=== PATIENT | female | born 1975 | race Caucasian/White ===

== ENCOUNTER → 2020-11-03 14:55 | Outpatient (CLI) | payer OTHER, SELFPAY ==
--- NOTE | ~2020-11-03 | MM_ITS ---
EXAMINATION: MM screening [facility] BI w tete HISTORY: Screening mammogram TECHNIQUE: Craniocaudal and mediolateral oblique 3-D tomosynthesis images were obtained and synthetic 2-D images were generated. CAD analysis was submitted and interpreted. COMPARISON: 10/17/2018, 10/12/2018, 10/02/2017 BREAST PARENCHYMAL COMPOSITION: The breasts are heterogeneously dense, which may obscure small masses . FINDINGS: There is no evidence of suspicious mass, calcification, or architectural distortion to sugg est malignancy in either breast. There has been no suspicious interval change. IMPRESSION: 1. No mammographic evidence of malignancy. 2. Recommend routine screening mammography in one year. BI-RADS Category 1: Negative Reviewed, dictated and finalized at location A.
== END ==
PROVIDERS: PCP Family Medicine Sports Medicine; Visit Provider Nurse Practitioner
DX: Z12.31 Encounter for screening mammogram for malignant neoplasm of breast (principal)
CPT/HCPCS: 77063; 77067

== ENCOUNTER 2021-07-28 21:00 | Emergency (ER) | payer OTHER, SELFPAY ==
[2021-07-28] VITALS (8 sets, daily range): BP systolic 104–132; BP diastolic 55–75; PULSE 77–84; RESP 18; TEMP 36.7–36.9; O2SAT 96–100
--- NOTE | ~2021-07-28 | CT_ITS ---
EXAMINATION: CT abdomen pelvis wo con DATE: 07/28/2021 23:00 INDICATION: R flank pain TECHNIQUE: Computed tomography (CT) of the abdomen and pelvis was performed without intravenous contr ast. Automated exposure control and iterative reconstruction technique were employed. The dose-length product was 761.57 mGy-cm. COMPARISON: 12/23/2010. FINDINGS: Lower thorax: Unremarkable Liver: Normal. Biliary/Gallbladder: Gallbladder is collapsed. No bile duct dilation. Pancreas: No mass or duct dilation. Spleen: Normal. Adrenals:No mass. Kidneys: No stone or mass. Mild right hydronephrosis and periureteral stranding. GI tract: No small or large bowel dilation. Normal appendix. Mesentery/Peritoneum: No ascites, mass, or free air. Retroperitoneum: No mass. Pelvis: IUD, in good position. Normal ovaries and uterus. The bladder is decompressed, with periphera l stranding. No obstructing stone or mass. Soft Tissues: Soft tissues and body wall unremarkable. Bones: No acute osseous finding. IMPRESSION: Mild right hydronephrosis with bladder and right ureteral inflammatory change. These findings may rep resent a recently passed stone or cystitis with ascending infection on the right. Reviewed, dictated and finalized at location K. IMPRESSION: Mild right hydronephrosis with bladder and right ureteral inflammatory change. These findings may represent a recently passed stone or cystitis with ascending infection on the right.
[2021-07-28 21:27] LABS: Basophils Absolute Auto 0.1 K/mm3 (0.0-0.1); Basophils Percent Auto 0.4 % (0.2-1.2); Eosinophils Absolute Auto 0.1 K/mm3 (0-0.3); Eosinophils Percent Auto 0.8 % (0-4.4); Hematocrit 41.5 % (37.0-47.0); Hemoglobin 13.7 g/dL (12.0-15.0); Immature Granulocyte Absolute 0.05 K/mm3 (0.00-0.031); Immature Granulocyte Percent A 0.3 % (0-0.5); Lymphocytes Absolute Auto 2.86 K/mm3 (0.9-3.2); Mean Corpuscular Hemoglobin 33.9 pg (26-34); Mean Corpuscular Volume 102.7 fl (80-100); Mean Platelet Volume 9.3 fl (7.4-10.4); Monocytes Absolute Auto 1.5 K/mm3 (0.1-0.6); Monocytes Percent Auto 8.8 % (2.6-8.5); Neutrophils Absolute Auto 12.3 K/mm3 (1.3-6.7); Neutrophils Percent Auto 72.7 % (45.5-73.1); Platelet Count Result 266 k/mm3 (150-375); Red Blood Count 4.04 M/mm3 (4.2-5.4); Red Cell Distribution Width 12.6 % (11.5-14.5); White Blood Count 16.9 K/mm3 (4.5-10.0)
[2021-07-28 21:31] LABS: Appearance Urine Cloudy (Clear); Bilirubin Urine Negative (Negative); Blood Urine 2+ (Negative); Color Urine Yellow (Yellow); Glucose Urine UA Negative (Negative); Ketones Urine Negative (Negative); Leukocyte Esterase Ur 2+ LEU/UL (Negative); Nitrate Urine Positive (Negative); Protein Urine 2+ mg/dL (Negative); Urobilinogen Urine 0.2 mg/dL (<2.0)
[2021-07-28 21:41] LABS: Alanine Aminotransferase 94 U/L (6-35); Albumin Level 4.8 g/dL (3.5-5.1); Alkaline Phosphatase 139 U/L (38-126); Anion Gap 8 mmol/L (8-16); Aspartate Amino Transferase 80 U/L (14-36); Bilirubin,Total 0.5 mg/dL (0.2-1.3); Blood Urea Nitrogen 14 mg/dL (7-17); Calcium 9.3 mg/dL (8.4-10.2); Carbon Dioxide 24 mmol/L (22-30); Chloride 104 mmol/L (98-107); Estimated CRCL calculation 85 ml/min; Estimated Glomerular Filt Rate > 60; Glucose 117 mg/dL (65-110); Potassium 3.9 mmol/L (3.4-5.0); Sodium 136 mmol/L (137-145)
--- NOTE | 2021-07-28 21:42 | ED.GENADULT ---
HPI - General Adult General Chief complaint: Urogenital-Female Stated complaint: low back pain, uti symptoms Time Seen by Provider: 07/28/21 21:36 Source: RN notes reviewed History of Present Illness HPI narrative: Patient presents emergency department from home for dysuria. Patient states she began to have dysuria 2 days ago. States that yesterday evening she began to have pain in her right lower abdomen that radiates into her right flank pain is worse with movement she states it is associated with nausea but denies any vomiting states she did have 1 bowel movement earlier today was had none since. She denies any fevers or chills, chest pain shortness of breath or any other symptoms states she not taking pain medication at home Related Data Home Medications Medication Instructions Recorded Confirmed fluoxetine 20 mg capsule 20 mg PO DAILY 07/05/21 07/22/21 multivit with min-folic acid 1 tablet PO DAILY 07/22/21 07/22/21 [Adult One Daily Multivitamin] Allergies Allergy/AdvReac Type Severity Reaction Status Date / Time Sulfa (Sulfonamide Allergy Mild Unknown Verified 07/28/21 21:15 Antibiotics) Penicillins Allergy Unknown Unknown Verified 07/28/21 21:15 Review of Systems Review of Systems: Gen.: Denies fevers or chills ENT: Denies congestion Respiratory: Denies shortness of breath or cough CV: Denies chest pain or palpitations GI: See HPI reports dysuria Musculoskeletal: Denies back pain or muscle pain Neuro: Denies numbness, tingling, weakness or focal weakness Skin: Denies rash Except as documented, all other systems reviewed and negative PMFSH Past Medical History Medical History Diverticulitis Surgical History Surgical History (Updated 07/05/21 @ 09:39 by Catrina Ely MA) H/O adenoidectomy H/O breast biopsy H/O colonoscopy H/O hernia repair History of tonsillectomy Family History Family History (Updated 07/05/21 @ 09:40 by Catrina Ely MA) Mother Colon cancer CHF (congestive heart failure) Diabetes mellitus Father COPD (chronic obstructive pulmonary disease) Social History Social History Smoking status: Never smoker Second hand tobacco smoke exposure: No Alcohol intake: current Alcohol use details: occasional Substance use: never Substance use type: does not use Additional living arrangements comments: Gender identity (if verbalized by the patient): Female Spiritual care concerns: No Exam Narrative: APPEARANCE: No acute distress, nontoxic, resting in bed HEENT: Normocephalic, atraumatic, OMM RESPIRATORY: No respiratory distress, clear to auscultation bilaterally with no rhonchi wheezing or rales CARDIOVASCULAR: RRR s murmur ABDOMINAL: Soft nondistended tender palpation right upper quadrant right lower quadrant no tenderness left lower quadrant left lower quadrant no rebound or guarding, right flank tenderness MUSCULOSKELETAl: Moves all extremities. No clubbing, cyanosis or edema. NEURO: Awake and alert. Following commands, speech normal, no focal deficits SKIN:: Warm, dry. Normal Color PSYCHIATRIC: Normal affect/mood Course Course Emergency Course: Called and discussed with pharmacy regarding the patient's allergies as the patient is also on fluoxetine. We discussed the pros versus cons and at this time we will give Rocephin as patient has had hives to penicillin but is never been on a cephalosporin Patient given cephalosporin no rash will discharge on cefdinir Discussed with patient results of workup and diagnosis. Discussed need for follow-up with primary care, proper use of medication, and reasons to return to the emergency department. Patient understands and agrees to current treatment plan Vital Signs Vital signs: Vital Signs Temperature 98.1 F 07/28/21 21:12 Pulse Rate 77 07/28/21 21:12 Respiratory Ra
[2021-07-28 21:46] LABS: Bacteria Urine Trace /hpf; RBC Urine >75 /hpf (0-2); Squamous Epithelial Cell Urine Moderate /hpf (Few); WBC Urine >75 /hpf
[2021-07-28 21:47] LABS: Add Urine Microscopic? YES
[2021-07-28] MEDS: KETOROLAC 30 MG/ML VIAL (*BKC) IV PUSH (21:54)
[2021-07-28] MEDS: ONDANSETRON INJ 4 MG/2 ML VIAL IV PUSH (21:54)
[2021-07-28] MEDS: SODIUM CHLORIDE 0.9% IV 1,000 ML 999 ML IV CONT (21:54)
--- NOTE | 2021-07-28 23:12 | PC.NURSE ---
Assumed care of pt. at this time. Report from MARQUIS Schneider
--- NOTE | 2021-07-28 23:14 | ECG_ITS ---
Measurements Intervals Eads Rate: 58 P: 73 SC: 172 QRS: -9 QRSD: 92 T: 18 QT: 463 QTc: 456 Interpretive Statements SINUS BRADYCARDIA ATRIAL PREMATURE COMPLEX INCOMPLETE RIGHT BUNDLE BRANCH BLOCK BORDERLINE ST-T WAVE ABNORMALITY- ANTEROLAT/INF LEADS BASELINE ARTIFACT- I, II, III, AVR, AVL BORDERLINE ECG Electronically Signed On 07-29-2021 6:38:03 CDT by Tray Starks D.O.
[2021-07-28 23:21] LABS: SARS-CoV-2 RNA PCR Negative
[2021-07-29 01:30] VITALS: BP 116/57; PULSE 55; RESP 16; O2SAT 98
== END 2021-07-29 01:34 | disposition home or self-care (01) ==
PROVIDERS: Emergency Provider Emergency Medicine; PCP Family Medicine Sports Medicine
DX: N39.0 Urinary tract infection, site not specified (principal); Z20.822 Contact with and (suspected) exposure to COVID-19; I49.1 Atrial premature depolarization; I45.10 Unspecified right bundle-branch block; R94.31 Abnormal electrocardiogram [ECG] [EKG]
CPT/HCPCS: 36415; 74176; 80053; 81001; 81025; 83605; 85025; 87040; 87077; 87086; 87186; 93005; 96361; 96365; 96374; 96375; 99284; C9803; J0696; J1885; J2405; J7030; U0003; U0005

== ENCOUNTER 2021-08-06 00:08 | Day surgery (SDC) | payer OTHER, SELFPAY ==
[2021-07-22 15:02] VITALS: BMI 30.2
[2021-08-06 06:43] VITALS: BP 101/83; PULSE 73; RESP 16; TEMP 36.2; O2SAT 100
[2021-08-06] MEDS: LACTATED RINGERS 1,000 ML 150 ML IV CONT (06:47)
--- NOTE | 2021-08-06 07:53 | WPDANESEPPF ---
Anes - Initial Pre Proc Eval Procedure: Operation Date: 08/06/21 08:00 Proposed Procedures p Esophagogastroduodenoscopy & Colonoscopy - Alejandro Lovelace MD Date/Time: 08/06/21 07:53 Surgeon: Alejandro Lovelace MD Pre Op Diagnosis: change in bowel habits, GERD Patient Data Age: 45 Gender: F Height: 1.75 m Weight: 89.9 kg Last Vital Signs Temp 97.1 F L 08/06/21 06:43 Pulse 73 08/06/21 06:43 Resp 16 08/06/21 06:43 BP 101/83 08/06/21 06:43 Pulse Ox 100 08/06/21 06:43 Allergies Allergy/AdvReac Type Severity Reaction Status Date / Time Sulfa (Sulfonamide Allergy Mild Unknown Verified 08/06/21 06:42 Antibiotics) Penicillins Allergy Unknown Unknown Verified 08/06/21 06:42 Home Medications Medication Instructions Recorded Confirmed Type famotidine 20 mg tablet 20 mg PO DAILY 30 Days #30 tablet 07/05/21 08/06/21 Rx fluoxetine 20 mg capsule 20 mg PO DAILY 07/05/21 08/06/21 History multivit with min-folic acid 1 tablet PO DAILY 07/22/21 08/06/21 History [Adult One Daily Multivitamin] cefdinir 300 mg PO Q12H 10 Days #20 cap 07/29/21 08/06/21 Rx ibuprofen [IBU] 600 mg PO Q6H PRN #20 tablet 07/29/21 08/06/21 Rx Patient hx anesthesia problems: none Family hx anesthesia problems: none Results Review: All pre-operative results and documents have been reviewed as part of the pre-operative evaluation. COUNTS INCLUDE 234 BEDS AT THE [facility] Past Medical History Medical History Diverticulitis Surgical History Surgical History (Updated 07/05/21 @ 09:39 by Catrina Ely MA) H/O adenoidectomy H/O breast biopsy H/O colonoscopy H/O hernia repair History of tonsillectomy Family History Family History (Updated 07/05/21 @ 09:40 by Catrina Ely MA) Mother Colon cancer CHF (congestive heart failure) Diabetes mellitus Father COPD (chronic obstructive pulmonary disease) Social History Social History (Reviewed 07/28/21 @ 21:43 by PRIYA Jack Smoking status: Never smoker Second hand tobacco smoke exposure: No Alcohol intake: current Alcohol use details: occasional Substance use: never Substance use type: does not use Living arrangements: alone Additional living arrangements comments: Gender identity (if verbalized by the patient): Female Spiritual care concerns: No Anes - Eval Final PreProcedure Day of Procedure 08/06/21 07:53 Patient weight: overweight Heart: regular rate and rhythm Lungs: clear to auscultation Airway: Mallampati scale class II Neurological: alert and oriented Last oral intake: >/= 8 hours ASA classification: II Emergent: no Anesthetic plan: proceed Anesthesia type and monitoring: general GIVS and standard monitoring Results Review: All pre-operative results and documents have been reviewed as part of the pre-operative evaluation. Informed Consent: The patient's anesthetic plan and its attendant risks and benefits were discussed with the patient/family/POA. Questions were solicited and answers provided to the satisfaction of the patient/family/POA.
--- NOTE | 2021-08-06 07:58 | WPDGICN ---
Assessment and Plan Assessment and plan (1) GERD (gastroesophageal reflux disease): Code(s): K21.9 - Gastro-esophageal reflux disease without esophagitis Status: Acute Assessment and Plan: Patient has occasional heartburn and occasional regurgitation nocturnally. This is improved on famotidine. EGD is requested will be performed to assess more thoroughly. Anti-reflux measures including elevating head of bed at night no late snacks are strongly encouraged. (2) Family history of colon cancer in mother: Code(s): Z80.0 - Family history of malignant neoplasm of digestive organs Status: Acute Assessment and Plan: Patient's mother has had colon cancer. For this reason surveillance colonoscopy is advised at 5 year intervals. It is been police that interval since last exam. (3) Change in bowel habit: Code(s): R19.4 - Change in bowel habit Status: Acute Assessment and Plan: Patient has had alteration in her bowel habits with bowel movements unexpectedly with urinating. Plan to increase fiber to 2 tabs p.o. b.i.d.. Further recommendations may be given after endoscopy. GI Consult Note Consult date/time: 08/06/21 07:58 HPI: Sofia Martinez is a 45 year old female Presents for both colonoscopy and EGD. Family history is significant that her mother had colon cancer at age 54. Patient reports for several months has had abdominal pain in left part of her abdomen. She notes that she will frequently have a bowel movement associated with urinating. She presents today for evaluation of her family history but also is concerned about her new abdominal pain. Patient denies any blood in her stools. She has had no weight loss. Additionally patient complains of heartburn for the last several months. She occasionally will have a frothy regurgitation in her mouth at night on reclining. She has had significant improvement on starting Famotidine therapy. Review of Systems Review of Systems: All systems reviewed & are unremarkable except as noted in HPI and below PMFSH Past Medical History Medical History Diverticulitis Surgical History Surgical History (Updated 07/05/21 @ 09:39 by Catrina Ely MA) H/O adenoidectomy H/O breast biopsy H/O colonoscopy H/O hernia repair History of tonsillectomy Family History Family History (Updated 07/05/21 @ 09:40 by Catrina Ely MA) Mother Colon cancer CHF (congestive heart failure) Diabetes mellitus Father COPD (chronic obstructive pulmonary disease) Social History Social History Smoking status: Never smoker Second hand tobacco smoke exposure: No Alcohol intake: current Alcohol use details: occasional Substance use: never Substance use type: does not use Living arrangements: alone Additional living arrangements comments: Gender identity (if verbalized by the patient): Female Spiritual care concerns: No Meds Home Medications and Allergies Home Medications Medication Instructions Recorded Confirmed Type famotidine 20 mg tablet 20 mg PO DAILY 30 Days #30 tablet 07/05/21 08/06/21 Rx fluoxetine 20 mg capsule 20 mg PO DAILY 07/05/21 08/06/21 History multivit with min-folic acid 1 tablet PO DAILY 07/22/21 08/06/21 History [Adult One Daily Multivitamin] cefdinir 300 mg PO Q12H 10 Days #20 cap 07/29/21 08/06/21 Rx ibuprofen [IBU] 600 mg PO Q6H PRN #20 tablet 07/29/21 08/06/21 Rx Allergies Allergy/AdvReac Type Severity Reaction Status Date / Time Sulfa (Sulfonamide Allergy Mild Unknown Verified 08/06/21 06:42 Antibiotics) Penicillins Allergy Unknown Unknown Verified 08/06/21 06:42 Vital Signs Vital Signs - 24 hr 08/06/21 06:43 Temperature 97.1 F L Pulse Rate 73 Respiratory Rate 16 Blood Pressure 101/83 Pulse Oximetry 100 Exam Narrative
--- NOTE | 2021-08-06 08:24 | SUR.OPER ---
EGD ended at 817. Colonoscopy started at 822.
[2021-08-06] MEDS: SIMETHICONE ORAL SUSPENSION 20 MG/0.3 ML 30 ML BOTTLE 0.6 ML IRRIGATION (08:27)
[2021-08-06 08:39] VITALS: BP 103/66; PULSE 52; RESP 16; O2SAT 99
[2021-08-06 08:49] VITALS: BP 104/65; PULSE 47; RESP 16; O2SAT 95
[2021-08-06 08:59] VITALS: BP 100/64; PULSE 54; RESP 16; O2SAT 98
--- NOTE | 2021-08-06 11:34 | SUR.OPER ---
EGD ended at 1123. Colonoscopy started at 1128.
== END 2021-08-06 09:09 | disposition home or self-care (01) ==
PROVIDERS: PCP Family Medicine Sports Medicine; Visit Provider Internal Medicine Gastroenterology
PROC: 0DJ08ZZ Inspection of Upper Intestinal Tract, Via Natural or Artificial Opening Endoscopic (ICD-10-PCS; CPT 43235; principal; 2021-08-06 08:00)
DX: R19.4 Change in bowel habit (principal); K64.8 Other hemorrhoids; Z80.0 Family history of malignant neoplasm of digestive organs; K25.9 Gastric ulcer, unspecified as acute or chronic, without hemorrhage or perforation; K21.9 Gastro-esophageal reflux disease without esophagitis; K29.50 Unspecified chronic gastritis without bleeding
CPT/HCPCS: 45380; 43239; 88305; 88342; J7120

== ENCOUNTER 2021-10-11 01:01 | Day surgery (SDC) | payer OTHER, SELFPAY ==
[2021-09-28 13:06] VITALS: BMI 30.2
--- NOTE | 2021-10-11 09:20 | WPDANESEPPF ---
Anes - Initial Pre Proc Eval Procedure: Operation Date: 10/11/21 11:30 Proposed Procedures p Esophagogastroduodenoscopy - Alejandro Lovelace MD Date/Time: 10/11/21 09:20 Surgeon: Alejandro Lovelace MD Pre Op Diagnosis: gastric ulcer Patient Data Age: 46 Gender: F Height: 1.75 m Weight: 93 kg Allergies Allergy/AdvReac Type Severity Reaction Status Date / Time Sulfa (Sulfonamide Allergy Mild Unknown Verified 10/11/21 10:27 Antibiotics) Penicillins Allergy Unknown Unknown Verified 10/11/21 10:27 Home Medications Medication Instructions Recorded Confirmed Type multivitamin with minerals-folic 1 tablet PO DAILY 07/22/21 09/28/21 History acid 0.4 mg tablet omeprazole 20 mg capsule,delayed 20 mg PO DAILY #30 caps 08/06/21 09/28/21 Rx release Patient hx anesthesia problems: none Family hx anesthesia problems: none Results Review: All pre-operative results and documents have been reviewed as part of the pre-operative evaluation. [facility] Past Medical History Medical History (Updated 10/11/21 @ 09:21 by Raymon Patel MD) Anxiety Depression Diverticulitis Gastric ulcer GERD (gastroesophageal reflux disease) Obesity Surgical History Surgical History (Updated 07/05/21 @ 09:39 by Catrina Ely MA) H/O adenoidectomy H/O breast biopsy H/O colonoscopy H/O hernia repair History of tonsillectomy Family History Family History (Updated 07/05/21 @ 09:40 by Catrina Ely MA) Mother Colon cancer CHF (congestive heart failure) Diabetes mellitus Father COPD (chronic obstructive pulmonary disease) Social History Social History Smoking status: Never smoker Second hand tobacco smoke exposure: No Alcohol intake: current Drinks per week: 4 Alcohol use details: occasional Substance use: never Substance use type: does not use Living arrangements: alone Additional living arrangements comments: Gender identity (if verbalized by the patient): Female Spiritual care concerns: No Anes - Eval Final PreProcedure Day of Procedure 10/11/21 09:20 Patient weight: overweight Heart: regular rate and rhythm Lungs: clear to auscultation Airway: Mallampati scale class II Neurological: alert and oriented Last oral intake: >/= 8 hours ASA classification: II Emergent: no Anesthetic plan: proceed Anesthesia type and monitoring: general GIVS and standard monitoring Results Review: All pre-operative results and documents have been reviewed as part of the pre-operative evaluation. Informed Consent: The patient's anesthetic plan and its attendant risks and benefits were discussed with the patient/family/POA. Questions were solicited and answers provided to the satisfaction of the patient/family/POA.
--- NOTE | 2021-10-11 10:34 | P.HP_ITS ---
H&P: HPI History of Present Illness Date/Time: 10/11/21 10:34 Chief Complaint: Gastric ulcer Narrative: this is a 46-year-old white female patient presents for follow-up EGD. She has a history of a gastric ulcer identified several months ago. She states her symptoms have improved quite significantly on starting Prilosec 20mg p.o. daily. She is. Previous use of famotidine. Patient denies any significant use of NSAIDs. No infection was identified at time of last endoscopy. She does note occasional loose stools every few days. On 1 brief episode. She has had no bleeding. She denies any abdominal pain. Appetite has returned to normal. Family history noncontributory Dariela. She does have a family history of colon cancer. Colonoscopy several months ago was noted. Follow-up anticipated in 5 years. Review of Systems Review of Systems: noncontributory review of systems [facility] Past Medical History Medical History (Updated 10/11/21 @ 09:21 by Raymon Patel MD) Anxiety Depression Diverticulitis Gastric ulcer GERD (gastroesophageal reflux disease) Obesity Surgical History Surgical History (Updated 07/05/21 @ 09:39 by Catrina Ely MA) H/O adenoidectomy H/O breast biopsy H/O colonoscopy H/O hernia repair History of tonsillectomy Family History Family History (Updated 07/05/21 @ 09:40 by Catrina Ely MA) Mother Colon cancer CHF (congestive heart failure) Diabetes mellitus Father COPD (chronic obstructive pulmonary disease) Social History Social History Smoking status: Never smoker Second hand tobacco smoke exposure: No Alcohol intake: current Drinks per week: 4 Alcohol use details: occasional Substance use: never Substance use type: does not use Living arrangements: alone Additional living arrangements comments: Gender identity (if verbalized by the patient): Female Spiritual care concerns: No Meds Home Medications and Allergies Home Medications Medication Instructions Recorded Confirmed Type multivitamin with minerals-folic 1 tablet PO DAILY 07/22/21 09/28/21 History acid 0.4 mg tablet omeprazole 20 mg capsule,delayed 20 mg PO DAILY #30 caps 08/06/21 09/28/21 Rx release Allergies Allergy/AdvReac Type Severity Reaction Status Date / Time Sulfa (Sulfonamide Allergy Mild Unknown Verified 10/11/21 10:27 Antibiotics) Penicillins Allergy Unknown Unknown Verified 10/11/21 10:27 Exam Narrative: physical exam reveals patient to be alert. Vital signs stable. HEENT exam is unremarkable. Patient is anicteric. Lungs are clear to auscult ation and percussion. Heart is without murmur or extra sounds. Abdomen bowel sounds present soft nontender with no organomegaly. Assessment and Plan Assessment and plan (1) Gastric ulcer: Code(s): K25.9 - Gastric ulcer, unspecified as acute or chronic, without hemorrhage or perforation Status: Acute Assessment and Plan: patient has a history of gastric ulcer 2 months ago. Plan is for follow-up exam this time to document healing. Continued use of omeprazole 20mg p.o. daily is advised. She should avoid NSAIDs. Further recommendations may be given after endoscopy.
[2021-10-11 10:35] VITALS: BP 115/66; PULSE 75; RESP 18; TEMP 36.2; O2SAT 97
[2021-10-11] MEDS: LACTATED RINGERS 1,000 ML 150 ML IV CONT (10:43)
[2021-10-11 11:16] VITALS: BP 97/53; PULSE 51; RESP 17; O2SAT 100
[2021-10-11 11:26] VITALS: BP 100/55; PULSE 47; RESP 17; O2SAT 100
[2021-10-11 11:36] VITALS: BP 100/58; PULSE 45; RESP 16; O2SAT 100
== END 2021-10-11 11:54 | disposition home or self-care (01) ==
PROVIDERS: PCP Family Medicine Sports Medicine; Visit Provider Internal Medicine Gastroenterology
PROC: 0DJ08ZZ Inspection of Upper Intestinal Tract, Via Natural or Artificial Opening Endoscopic (ICD-10-PCS; CPT 43235; principal; 2021-10-11 11:30)
DX: K25.9 Gastric ulcer, unspecified as acute or chronic, without hemorrhage or perforation (principal); F41.9 Anxiety disorder, unspecified; F32.A Depression, unspecified; K21.9 Gastro-esophageal reflux disease without esophagitis
CPT/HCPCS: 43239; 87081; J2704; J7120

== ENCOUNTER → 2022-08-02 09:01 | Outpatient (CLI) | payer OTHER, SELFPAY ==
--- NOTE | ~2022-08-02 | US_ITS ---
Pelvic ultrasound. Clinical History: Pelvic pain Technique: Realtime transabdominal and transvaginal scanning of the pelvis was performed. Color flow Doppler and Doppler spectral analysis were performed. Findings: The uterus is anteverted. The endometrial stripe has a thickness of 7 mm. There is a 1.4 c m myometrial cyst or possibly degenerating/necrotic fibroid. IUD is probably present, in satisfactory position. The right ovary measures 2.5 x 2.5 x 3.1 cm. No significant right ovarian or adnexal mass is seen. The left ovary measures 3.0 x 1.9 x 2.7 cm. No significant left ovarian or adnexal mass is seen. There is no evidence of free fluid in the cul de sac. Impression: IUD in place. Small myometrial cyst or fibroid, as detailed above. Reviewed, dictated and finalized at [facility]. Impression: IUD in place. Small myometrial cyst or fibroid, as detailed above.
== END ==
PROVIDERS: PCP Family Medicine Sports Medicine; Visit Provider Nurse Practitioner
DX: T83.32XA Displacement of intrauterine contraceptive device, initial encounter (principal)
CPT/HCPCS: 76856

== ENCOUNTER 2022-10-25 13:37 | Outpatient (CLI) | payer OTHER, SELFPAY ==
--- NOTE | 2022-10-25 | ECHO_ITS ---
Patient Info Name: Sofia Martinez Age: 47 years : 1975 Gender: Female Ht: 69 in Wt: 212 lbs BSA: 2.19 m2 HR: 55 bpm BP: 118 / 75 mmHg Heart Rhythm: Sinus Rhythm Technical Quality: Good Exam Date: 10/25/2022 1:55 PM Exam Location: [facility] Pulmonary Patient Status: Outpatient Admit Date: 10/25/2022 Staff Ordering Physician: JaycobRita Oncology Navigator: Kimmie Lew RDCS Attending Provider: Harley, Rita MITCHELL Referring Physician: Jaycob BARTON; Exam Type: CA echo doppler color flow Study Info Indications R06.09 - Other forms of dyspnea Complete two-dimensional, color flow and Doppler transthoracic echocardiogram is performed. Strain analysis performed. Summary 1. Complete two-dimensional, color flow and Doppler transthoracic echocardiogram is performed. 2. Strain analysis performed. 3. Left ventricular chamber dimension is normal. 4. Left ventricular systolic function is normal, estimated at 60-65%. 5. There is no increased left ventricular wall thickness. 6. The left ventricular diastolic function is normal. 7. Global longitudinal strain is normal at -25 %. 8. There is mild aortic valve regurgitation. 9. There is mild mitral valve regurgitation. 10. There is mild tricuspid valve regurgitation. 11. There is mild pulmonic regurgitation. Left Ventricle Global longitudinal strain is normal at -25 %. Left ventricular chamber dimension is normal. Left ventricular systolic function is normal, estimated at 60-65%. There is no increased left ventricular wall thickness. The left ventricular diastolic function is normal. Right Ventricle Right ventricular chamber dimension is normal. Right ventricular systolic function is normal. Left Atria Left atrial chamber dimension is normal. Right Atria Right atrial chamber dimension is normal. Atrial Septum Intact interatrial septum visualized by color flow imaging. Aortic Valve The aortic valve is trileaflet. There is mild aortic valve sclerosis. There is no aortic valve stenosis. There is mild aortic valve regurgitation. Pulmonic Valve The pulmonic valve is normal. There is no pulmonic valve stenosis. There is mild pulmonic regurgitation. Mitral Valve The mitral valve has normal leaflets. There is no mitral valve stenosis. There is mild mitral valve regurgitation. Tricuspid Valve The tricuspid valve leaflets are normal. There is no significant tricuspid valve stenosis. There is mild tricuspid valve regurgitation. No pulmonary hypertension, estimated pulmonary arterial systolic pressure is 31 mmHg. Pericardium/Pleural The pericardium appears normal. There is no pericardial effusion. Inferior Vena Cava Normal inferior vena cava with >50% collapse upon inspiration consistent with normal right atrial pressure, 5 mmHg. Aorta The aortic root size at the sinus of Valsalva is normal. Left Ventricular Outflow Tract Name Value Normal LVOT 2D LVOT Diameter 2.0 cm LVOT Doppler LVOT Peak Gradient 6 mmHg LVOT Mean Gradient 3 mmHg LVOT VTI 29 cm LVOT VTI/AV VTI Ratio 0.[address]
== END 2022-10-25 13:38 | disposition home or self-care (01) ==
LOC: ANHCARD 13:38
PROVIDERS: PCP Family Medicine Sports Medicine; Visit Provider Nurse Practitioner
DX: R06.09 Other forms of dyspnea (principal); I08.3 Combined rheumatic disorders of mitral, aortic and tricuspid valves
CPT/HCPCS: 93306

== ENCOUNTER → 2022-12-23 13:24 | Outpatient (CLI) | payer OTHER, SELFPAY ==
--- NOTE | ~2022-12-23 | MM_ITS ---
EXAMINATION: MM screening [facility] BI w tete HISTORY: Screening mammogram TECHNIQUE: Craniocaudal and mediolateral oblique 3-D tomosynthesis images were obtained and synthetic 2-D images were generated. CAD analysis was submitted and interpreted. COMPARISON: 11/03/2020, 10/17/2018, 10/12/2018 BREAST PARENCHYMAL COMPOSITION: The breasts are heterogeneously dense, which may obscure small masses . FINDINGS: No suspicious mass, calcification, or architectural distortion are identified in either sissy ast to suggest malignancy. There has been no suspicious interval change. IMPRESSION: 1. No mammographic evidence of malignancy. 2. Recommend routine screening mammography in one year. BI-RADS Category 1: Negative Reviewed, dictated and finalized at location A.
== END ==
PROVIDERS: PCP Family Medicine Sports Medicine; Visit Provider Nurse Practitioner
DX: Z12.31 Encounter for screening mammogram for malignant neoplasm of breast (principal)
CPT/HCPCS: 77063; 77067

== ENCOUNTER 2023-09-14 10:12 | Outpatient (CLI) | payer OTHER, SELFPAY ==
--- NOTE | ~2023-09-14 | US_ITS ---
US pelvic complete Ordering provider: Soha Oliva, FOOD MANAGER History: . IUD Placement . Comparison: August 02, 2022 Technique: Transabdominal and endovaginal ultrasound of the pelvis (Doppler ultrasound interrogation techniques used as needed for this exam.) FINDINGS: CERVIX: Normal. UTERUS: Measures 10.9x 5.5x 6.3 cm in length which is within normal limits and is anteverted. Hypoec hoic area is seen posteriorly measuring 2.2 x 1.2 x 1.5 cm most likely fibroid. ENDOMETRIUM: Normal in thickness measuring 6 mm. (IUD is seen in the endometrial cavity. CUL DE SAC: No free fluid. RIGHT OVARY: Normal in size measuring 2.8x 1.9x 2.4 cm. Normal echotexture. Doppler vascular flow pre sent. LEFT OVARY: Normal in size measuring 4.2x 3.1x 4.7 cm Normal echotexture. Doppler vascular flow prese nt.. Complex cystic areas seen measuring 3.3 x 3.1 x 3.4 cm. ADNEXA: Normal. No mass. IMPRESSION: Otherwise, normal pelvic ultrasound. Reviewed, dictated and finalized at location A.
== END 2023-09-14 10:13 ==
LOC: MICIMG 10:13
PROVIDERS: PCP Nurse Practitioner; Visit Provider Nurse Practitioner
DX: T83.32XA Displacement of intrauterine contraceptive device, initial encounter (principal); Y83.8 Other surgical procedures as the cause of abnormal reaction of the patient, or of later complication, without mention of misadventure at the time of the procedure
CPT/HCPCS: 76856

== ENCOUNTER 2023-10-26 08:06 | Outpatient (CLI) | payer OTHER, SELFPAY ==
--- NOTE | ~2023-10-26 | US_ITS ---
EXAMINATION: US pelvic complete DATE: 10/26/2023 08:30 INDICATION: Left ovarian cyst. TECHNIQUE: Multiple transabdominal sonographic images of the pelvis were obtained. COMPARISON: Ultrasound 09/14/2023, CT abdomen and pelvis 07/28/2021 FINDINGS: The uterus measures 8.2 x 5.1 x 5.8 cm. There is no free fluid in the pelvis. The endometrial complex measures 6 mm in thickness. There is an intrauterine device in expected position. There is a 2.0 cm subserosal fibroid. The right ovary measures 3.4 x 1.7 x 2.9 cm. The left ovary measures 4.8 x 3.1 x 4.0 cm. There is a 3.5 cm cyst with low-level echoes in left ovary, consistent with a hemorrhagic cys t. There is normal vascular flow in the ovaries. IMPRESSION: 1. 3.5 cm hemorrhagic cyst in left ovary. 2. Intrauterine device in expected position. 3. Uterine fibroid. Reviewed, dictated and finalized at location A.
== END 2023-10-26 08:07 ==
LOC: MICIMG 08:07
PROVIDERS: PCP Family Medicine Sports Medicine; Visit Provider Obstetrics & Gynecology Gynecology
DX: N83.202 Unspecified ovarian cyst, left side (principal); D25.9 Leiomyoma of uterus, unspecified; Z97.5 Presence of (intrauterine) contraceptive device
CPT/HCPCS: 76856

== ENCOUNTER 2024-01-29 09:21 | Outpatient (CLI) | payer OTHER, SELFPAY ==
--- NOTE | ~2024-01-29 | US_ITS ---
US pelvic complete Ordering provider: Enedina Moran MD History: . L ovarian cyst . Comparison: None. Technique: Transabdominal and endovaginal ultrasound of the pelvis (Doppler ultrasound interrogation techniques used as needed for this exam.) FINDINGS: CERVIX: Normal. UTERUS: Measures 11x 4.8x 6.2 cm in length which is within normal limits and is anteverted. No myome trial masses. ENDOMETRIUM: Normal in thickness measuring 7.2 mm. IUD is seen in the endometrial cavity. Complex are a is seen posterior posteriorly measuring 1.7 x 1.7 x 1.7 cm. No endometrial masses, cysts or fluid. CUL DE SAC: No free fluid. RIGHT OVARY: Normal in size measuring 3.8x 3.9x 3.2 cm. Normal echotexture. Doppler vascular flow pre sent. Simple cyst is seen measuring 2.4 x 2.9 x 2.2 cm. LEFT OVARY: Normal in size measuring 1.9x 2.2x 1.7 cm. Normal echotexture. Doppler vascular flow pres ent. ADNEXA: Normal. No mass. IMPRESSION: Cyst in the right ovary. IUD in the endometrial cavity. Complex area seen in the uterus posteriorly m ost likely fibroid. Otherwise, normal pelvic ultrasound. Reviewed, dictated and finalized at location A. [employer] SPECIALIST IMPRESSION: Cyst in the right ovary. IUD in the endometrial cavity. Complex area seen in th e uterus posteriorly most likely fibroid. Otherwise, normal pelvic ultrasound.
== END 2024-01-29 09:22 | disposition home or self-care (01) ==
LOC: MICIMG 09:22
PROVIDERS: PCP Family Medicine Sports Medicine; Visit Provider Obstetrics & Gynecology Gynecology
DX: N83.202 Unspecified ovarian cyst, left side (principal); Z97.5 Presence of (intrauterine) contraceptive device
CPT/HCPCS: 76856

== ENCOUNTER 2024-08-15 12:39 | Outpatient (CLI) | payer OTHER, SELFPAY ==
--- NOTE | ~2024-08-15 | MM_ITS ---
EXAMINATION: MM screening ray BI w tete HISTORY: Screening TECHNIQUE: Craniocaudal and mediolateral oblique 3-D tomosynthesis images were obtained and synthetic 2-D images were generated. CAD analysis was submitted and interpreted. COMPARISON: Comparison to multiple prior studies sequentially, with oldest reviewed study dated 10/02. BREAST PARENCHYMAL COMPOSITION: Not dense: There are scattered areas of fibroglandular density. FINDINGS: There is no evidence of suspicious mass, calcification, or architectural distortion to sugg est malignancy in either breast. There has been no suspicious interval change. IMPRESSION: 1. No mammographic evidence of malignancy. 2. Recommend routine screening mammography in one year. BI-RADS Category 1: Negative Reviewed, dictated and finalized at location A.
--- NOTE | ~2024-08-15 | US_ITS ---
Pelvic ultrasound. Clinical History: Displacement of intrauterine device Technique: Realtime transabdominal scanning of the pelvis was performed. Color flow Doppler and Doppl er spectral analysis were performed. Findings: The uterus is anteverted. The endometrial stripe has a thickness of 7 mm. IUD in satisfact ory position. No focal mass is identified. The right ovary measures 3.6 x 2.5 x 3.9 cm. No significant right ovarian or adnexal mass is seen. The left ovary measures 3.5 x 2.0 x 2.8 cm. No significant left ovarian or adnexal mass is seen. There is no evidence of free fluid in the cul de sac. Impression: IUD in satisfactory position. Reviewed, dictated and finalized at location . Impression: IUD in satisfactory position.
== END 2024-08-15 12:40 | disposition home or self-care (01) ==
LOC: MICIMG 12:40
PROVIDERS: PCP Family Medicine Sports Medicine; Visit Provider Nurse Practitioner
DX: Z12.31 Encounter for screening mammogram for malignant neoplasm of breast (principal); T83.32XA Displacement of intrauterine contraceptive device, initial encounter
CPT/HCPCS: 76856; 77063; 77067